=== PATIENT | male | born 1990 | race Caucasian/White ===

== ENCOUNTER 2019-05-07 13:41 | Outpatient (RCR) | payer SELFPAY | END 2019-05-15 00:01 | LOC: WOUND 13:41 | PROVIDERS: Visit Provider Nurse Practitioner Family | DX: L02.414 Cutaneous abscess of left upper limb (principal); I96 Gangrene, not elsewhere classified | CPT/HCPCS: 11042 ×2; 87070; 87077; 87176; 87186; 87205 ==

== ENCOUNTER → 2019-11-04 16:18 | Outpatient (BNVA) | payer SELFPAY | PROVIDERS: PCP Nurse Practitioner; Visit Provider Nurse Practitioner Family | DX: R50.9 Fever, unspecified (principal); J06.9 Acute upper respiratory infection, unspecified; B96.89 Other specified bacterial agents as the cause of diseases classified elsewhere; F17.210 Nicotine dependence, cigarettes, uncomplicated | CPT/HCPCS: 87400; 87635 ==

== ENCOUNTER 2020-05-30 03:40 | Inpatient (IN) | payer SELFPAY ==
[2020-05-30 03:44] VITALS: BP 143/89; PULSE 114; RESP 20; TEMP 36.8; O2SAT 96; BMI 36.9
--- NOTE | 2020-05-30 03:53 | ED_ITS ---
HPI - Anxiety General: Chief Complaint: Anxiety Stated Complaint: sore throat Time Seen by Provider: 05/30/20 03:50 Source: patient Mode of arrival: ambulatory Limitations: no limitations History of Present Illness: HPI narrative: 29-year-old male states that roughly 1 to 2 hours ago he started feeling extremely anxious. He states he has anxiety attacks every night feels like his throat is closing. He states he is feeling improved now still having some anxiety. He does admit to recent opiate abuse and drinking alcohol. He denies any worsening or improving factors. He s tates that his anxiety has been increasingly severe and he states he not able to function. He states he would like to go to the psychiatric unit. MD complaint: anxiety Associated symptoms: Deny chest pain, chills, fever(s), headache(s), nausea or vomiting Review of Systems Const: Denies: fever(s), chills, body aches or change in appetite Eyes: Denies: blurry vision or eye discomfort ENMT: Reports: throat pain Card: Denies: chest pain Resp: Denies: dyspnea GI: Denies: abdominal pain, nausea, vomiting or diarrhea : Denies: dysuria Musc: Denies: neck pain or back pain Skin/Breast: Denies: rash Neuro: Denies: headache(s) Psych: Reports: anxiety Danie/Lymph: Denies: easy bruising All/Imm: Denies: urticaria PFSH ED PFSH: Social History (Updated 11/04/19 @ 16:14 by Siobhan Loza LPN) Smoking and tobacco status: current every day smoker Physical Exam Const: COMMON NORMALS: no acute distress, patient oriented x3 and healthy appearing HENMT: COMMON NORMALS: normocephalic and atraumatic HEAD & SCALP: normocephalic and atraumatic Eye: COMMON NORMALS: Equal, round and reactive pupils present and EOMs intact bilaterally PUPIL: Yes Equal, round and reactive pupils present Neck/C-Spine: COMMON NORMALS: full ROM and supple Chest: COMMONS NORMALS: normal inspection of the chest and normal palpation of entire chest wall Resp: COMMON NORMALS: normal respiratory effort, No retractions, No use of accessory muscles and clear to auscultation bilaterally AUSCULTATION: clear to auscultation bilaterally Cardio: COMMON NORMALS: regular rate, regular rhythm and No murmurs present (Cardio) RATE: regular rate RHYTHM: regular rhythm GI: COMMON NORMALS: Normal to inspection, nondistended, normoactive bowel sounds present, Soft to palpation, non-tender and no masses PALPATION: Yes Soft to palpation Extremity: COMMON NORMALS: normal to inspection and full ROM Neuro: COMMON NORMALS: patient oriented x3, moves all extremities and no focal motor deficits Psych: COMMON NORMALS: mental status grossly normal, Normal thought process present and cooperative MOOD & AFFECT: Yes anxious THOUGHT PROCESS: Normal thought process present Skin: COMMON NORMALS: no rashes or lesions noted and no wounds GENERAL SKIN EXAM: no rashes or lesions noted Course Vital Signs: Vital signs: Vital Signs Temperature 98.2 F 05/30/20 03:44 Pulse Rate 118 H 05/30/20 03:58 Respiratory Rate 20 H 05/30/20 03:44 Blood Pressure 130/105 05/30/20 03:58 Pulse Oximetry 95 05/30/20 03:58 MDM - Anxiety MDM Narrative: Medical decision making narrative: Willard presents here with anxiety stress. He states his anxiety is severe and is unable to function due to it. Patient voluntarily being admitted to the psychiatric unit. I spoke to Dr. Boyle who will admit. Patient is medically cleared. Lab Data: Labs: Lab Results 05/30/20 05/30/20 05/30/20 Range/Units 04:30 04:30 04:45 WBC 9.4 (4.0-10.0) 10^3/ uL RBC 5.17 (4.1-5.3) 10^6/u L Hgb 14.1 (11.7-16.6) g/dL Hct 42.8 (42.0-52.0) % MCV 82.8 (80-94) fL MCH 27.3 L (28.0-34.0) pg MCHC 32.9 (30.0-36.0) g/dL RDW 12.3 (12.1-15.1) % Plt Count 290 (130-400) 10^3/c mm MPV 9.1 (7.4-10.4) fL Neut % (Auto) 72.7 % Lymph % (Auto) 13.7 % [place] % (Auto) 9.2 % Eos % (Auto) 3.6 % Baso % (Auto) 0.5 % Neut # (Auto) 6.83 (1.8-7.7) 10^3/u L Lymph # (Auto) 1.3 (0.8-4.8) 10^3/u L [place] # (Auto) 0.9 (0.2-0.9) 10^3/u L Eos # (Auto) 0.3 (0.0-0.8) 10^3/u L Baso # (Auto) 0.1 (0.0-0.1) 10^3/u L Nucleated RBC % (a uto) 0 % Nucleated RBCs # 0.0 /100WBC Sodium 134 L (136-145) mmol/L Potassium 3.8 (3.5-5.1) mmol/L Chloride 99 (98-107) mmol/L Carbon Dioxide 23 (22-29) mmol/L Anion Gap 15.8 (5-19) BUN 22 H (6-20) mg/dL Creatinine 0.7 (0.7-1.2) mg/dL GFR Calculation 133.3 H (90-130) mL/min Glucose 124 H (65-115) mg/dL Calculated Osmolal ity 283 L (285-295) mOsm/k g Calcium 9.0 (8.5-10.5) mg/dL Total Bilirubin 0.6 (0.15-1.2) mg/dL AST 25 (0-40) U/L ALT 28 (0-41) U/L Alkaline Phosphata se 94 (40-130) IU/L Total Protein 7.5 (6.6-8.7) g/dL Albumin 4.2 (3.5-5.2) g/dL Globulin 3.3 (1.3-4.6) g/dL Salicylates < 0.3 L (3-10) mg/dL Urine Opiates Scre en Positive H (Negative) ng/mL Acetaminophen < 5.0 L (10-30) ug/mL Ur Barbiturates Sc reen Negative (Negative) ng/mL Ur Phencyclidine S crn Negative (Negative) ng/mL Ur Amphetamines Sc reen Positive H (Negative) ng/mL U Benzodiazepines Scrn Negative (Negative) ng/mL Urine Cocaine Scre en Negative (Negative) ng/mL U Marijuana (THC) Screen Negative (Negative) ng/mL Ethyl Alcohol < 10 (0-10) mg/dL Discharge Plan Discharge Patient Disposition: Admitted As Inpatient Clinical Impression: Acute anxiety Condition: Stable Discharge Diet: Advance as tolerated Discharge Activity: Resume usual activity Coding Level of Care Code ED Viscosity Tester for Danish Fwhoward Exam Comprehensive
[2020-05-30] MEDS: LORazepam 2 mg Tablet PO (03:57)
[2020-05-30 03:58] VITALS: BP 130/105; PULSE 118; O2SAT 95
[2020-05-30 04:40] LABS: Basophils # 0.1 10^3/uL (0.0-0.1); Basophils % 0.5 %; Eosinophils # 0.3 10^3/uL (0.0-0.8); Eosinophils % 3.6 %; Hematocrit 42.8 % (42.0-52.0); Hemoglobin 14.1 g/dL (11.7-16.6); Lymphocytes # 1.3 10^3/uL (0.8-4.8); Lymphocytes % 13.7 %; Mean Corpuscular HGB Conc 32.9 g/dL (30.0-36.0); Mean Corpuscular Hemoglobin 27.3 pg (28.0-34.0); Mean Corpuscular Volume 82.8 fL (80-94); Mean Platelet Volume 9.1 fL (7.4-10.4); Monocytes # 0.9 10^3/uL (0.2-0.9); Monocytes % 9.2 %; Neutrophils # 6.83 10^3/uL (1.8-7.7); Neutrophils % 72.7 %; Nucleated Red Blood Cells % 0 %; Platelet Count 290 10^3/cmm (130-400); Red Blood Count 5.17 10^6/uL (4.1-5.3); Red Cell Distribution Width 12.3 % (12.1-15.1); White Blood Count 9.4 10^3/uL (4.0-10.0)
[2020-05-30 05:04] LABS: Amphetamines Screen Urine Positive (Negative); Barbiturates Screen Urine Negative (Negative); Benzodiazepines Screen Urine Negative (Negative); Cocaine Screen Urine Negative (Negative); Opiate Screen Urine Positive (Negative); PCP Screen Urine Negative (Negative); THC Screen Urine Negative (Negative)
[2020-05-30 05:05] LABS: Alanine Aminotransferase 28 U/L (0-41); Albumin Level 4.2 g/dL (3.5-5.2); Alkaline Phosphatase 94 IU/L (40-130); Anion Gap 15.8 (5-19); Aspartate Amino Transferase 25 U/L (0-40); Blood Urea Nitrogen 22 mg/dL (6-20); Carbon Dioxide 23 mmol/L (22-29); Chloride 99 mmol/L (98-107); Globulin 3.3 g/dL (1.3-4.6); Glomerular Filtration Rate 133.3 mL/min (90-130); Glucose 124 mg/dL (65-115); Osmolality Calculated 283 mOsm/kg (285-295); Potassium 3.8 mmol/L (3.5-5.1); Sodium 134 mmol/L (136-145); Total Bilirubin 0.6 mg/dL (0.15-1.2); Total Protein 7.5 g/dL (6.6-8.7)
[2020-05-30 05:11] LABS: Acetaminophen < 5.0 ug/mL (10-30); Alcohol Level < 10 mg/dL (0-10); Salicylate < 0.3 mg/dL (3-10)
--- NOTE | 2020-05-30 05:44 | PC.NURSE ---
pt requests going to NPU as he states he needs help with his anxiety.
[2020-05-30 05:45] VITALS: BP 110/57; PULSE 105; O2SAT 95
[2020-05-30 06:16] VITALS: BP 130/84; PULSE 90; RESP 19; TEMP 36.5; O2SAT 94
--- NOTE | 2020-05-30 11:14 | P.HP_ITS ---
Providers/Chief Complaint Admitting Physician: Ashely Mendez DO Primary Care Provider: DARRYL Gordon Chief Complaint: Worsening anxiety attacks, opioid dependence HPI NPU History of Present Illness Willard Joyce is a 29 year old male with unclear past psychiatric history although patient reports longstanding anxiety in the context of ongoing substance use, polysubstance abuse, states that he has been using opiates on a near daily basis, IVDU, also reports near daily methamphetamine use over the past month after being laid off from his job. Patient was evaluated and medically cleared by the emergency department at which time his urine drug screen was positive for opiates and amphetamines. Patient states that he has been previously treated for depression although he reports that he does not feel like he has depression, denies any decreased energy or interest in his usual activities although he does report having some sluggishness. Patient states that he feels like his primary problem is anxiety and states that he has anxiety attacks on a near daily basis. He reports that he had previously been trialed on an SSRI but states that he has concerns because it was causing him to not feel well. He denies any other treatment for his anxiety symptoms. Per above, patient reports IV drug use on a near daily basis with heroin or pain pills. Patient states that he does not prefer to use methamphetamine but has been using on a more frequent basis for the past month. Patient is unable to state when his last substance abuse treatment was but reports that he is interested in treatment. He currently denies any withdrawal symptoms, denies any nausea, denies any vomiting, denies any stomach cramping or any muscle aches or sweating. Patient denies any psychotic symptoms. Patient denies any recent or past manic or hypomanic episodes. Patient denies any past trauma. Psychiatric review of systems is otherwise negative. Reports that he currently lives with his grandmother and that his mother provides him financial support. Review of Systems General: Reports: 10 or more systems reviewed and unremarkable except in HPI and below Meds NPU Home Medications Medication Instructions Recorded Confirmed Last Taken Type No Known Home Medications 05/30/20 05/30/20 Unknown History Allergies Allergy/AdvReac Type Severity Reaction Status Date / Time amoxicillin Allergy ALGY-Rash Verified 05/30/20 03:48 Penicillins Allergy Unknown Verified 05/30/20 03:48 PFSH NPU PFSH: Social History Smoking and tobacco status: current every day smoker Other Psychiatric History: Other Psychiatric History: Reports first contact with mental health was around the age of 7 or 8 and states that he was hospitalized in a child and adolescent facility in [place], [place] for unknown period of time and does not recall any following treatment Reports seeing [facility] once in the past several years Denies any history of suicide attempt or self-harm behavior Mental Status Exam MSE Comments: Appears older than stated age, somewhat odd appearing, unshaven, long unkempt hair, dirty toes and feet and multiple tattoos on exposed skin, calm, cooperative, fair eye contact Psychomotor activity is neither increased nor decreased, no agitation Speech with frequent pauses otherwise normal rate, normal volume, spontaneous, fair articulation, not pressured I feel anxious, congruent affect, full range, not labile Alert and oriented to person, place, time, situation Memory and concentration appear to be fair per interview Intellectual functioning appears to be low to average at best per vocabulary, interview Thought process, linear, no flight of ideas, no looseness of association Thought content, no delusions, no hallucinations, no suicidal or homicidal ideation Insight and judgment appear to be fair at best Vitals/I&O/Wt Last Vital Signs Temp 97.7 F 05/30/20 06:16 Pulse 90 05/30/20 06:16 Resp 19 H 05/30/20 06:16 BP 130/84 05/30/20 06:16 Pulse Ox 94 05/30/20 06:16 Weight last 48 hrs Weight 113.398 kg Physical Exam Narrative: EXAM NARRATIVE: Emergency department physical examination prior to admission was reviewed Data NPU : 05/30/20 04:30 05/30/20 04:30 A&P Assessment and plan (1) Acute anxiety: Patient presenting with daily anxiety attacks in the context of substance use although he reports past elevated levels of anxiety causing significant impairment and worsening substance use. START Effexor XR 37.5 mg daily with plan to titrate up for effect Patient encouraged to dissipate in unit activities to include unit milieu Status: Acute (2) Polysubstance abuse: Patient reporting near daily use of methamphetamine as well as IV drug use with heroin on a near daily basis over the past month since losing his job Currently denying any withdrawal symptoms Patient would likely benefit from outpatient or residential substance treatment post discharge Status: Acute (3) Hyponatremia: Patient with historically just below normal range serum sodium, will continue to monitor and consult hospitalist if any continued worsening. Status: Acute Involuntary Hold Information 96 Hour Hold: 96 Hour Involuntary Admission: No Attestations NPU Medical Necessity Statement*: Patient with increasing IV substance use with worsening anxiety symptoms causing significant impairment in daily functioning Time Spent in Patient Care: Greater than 35 minutes (>than 50% of time spent in counselling and/or direct pt care on unit) . Coding Level of Care Code Acute Fabrication Operator for Danish Shine Diagnoses Acute anxiety F41.9 Polysubstance abuse F19.10 Hyponatremia E87.1
[2020-05-30] MEDS: venlafaxine ER (24HR) 37.5 mg Capsule PO (11:45)
[2020-05-30 13:25] VITALS: BP 109/65; PULSE 90; RESP 20; TEMP 36.6; O2SAT 96
[2020-05-30] MEDS: nicotine 2 mg Gum BUCCAL (14:52)
--- NOTE | 2020-05-30 15:16 | PC.RESP ---
Smoking Cessation information sent to patient.
[2020-05-30 20:07] VITALS: BP 113/65; PULSE 77; RESP 16; TEMP 36.8; O2SAT 95
[2020-05-30] MEDS: trazodone 50 mg Tablet PO (20:43)
[2020-05-30] MEDS: hyDROXYzine 25 mg Capsule 50 MG PO (20:43)
[2020-05-31 06:00] VITALS: BP 109/69; PULSE 107; RESP 16; TEMP 36.8; O2SAT 93
[2020-05-31] MEDS: venlafaxine ER (24HR) 37.5 mg Capsule PO (08:10)
--- NOTE | 2020-05-31 09:02 | P.PN_ITS ---
Subjective NPU Subjective: Interval history: Continues to report significant anxiety symptoms, states his anxiety has 5-6/10, denies any interval panic symptoms Reports being a controlled environment helps with his anxiety symptoms but fears continued worsening outside of the hospital Reports intermittent depressive symptoms but some improvement, denies any interval suicidal ideation Reports some visual illusions but denies any auditory hallucinations, denies any delusions Patient continues to struggle with relationship between his substance use and his mood and anxiety symptoms Patient reports being compliant with his medication and denies any medication side effects Reports good appetite Reports that his sleep has been good, feels rested No reported interval behavioral disturbances Mental Status Exam MSE Comments: Appears stated age, unkempt hair, unshaven, appropriately dressed, sitting in the day room watching TV, fair eye contact, pleasant, cooperative Psychomotor activity is neither increased nor decreased, no agitation Speech is normal rate and volume, spontaneous, fair articulation, not pressured I feel anxious, full range, not labile Alert and oriented to person, place, time, situation Memory and concentration appear to be intact per interview Thought process linear, no flight of ideas, no looseness of association Thought content, no delusions, does not appear to be attending to any internal stimuli, no suicidal or homicidal ideation Insight and judgment appear to be fair Vitals/I&O/Wt Last Vital Signs Temp 98.3 F 05/31/20 06:00 Pulse 107 H 05/31/20 06:00 Resp 16 05/31/20 06:00 BP 109/69 05/31/20 06:00 Pulse Ox 93 05/31/20 06:00 Weight last 48 hrs Weight 113.398 kg Data NPU : 05/30/20 04:30 05/30/20 04:30 A&P Assessment and plan (1) Acute anxiety: Status: Acute (2) Polysubstance abuse: Status: Acute (3) Hyponatremia: Status: Acute Additional A&P Information Continues reports significant anxiety symptoms with intermittent depressive symptoms, denies any interval suicidal ideation, tolerating medication well INCREASE to Effexor XR 75 mg daily targeting depressive and anxiety symptoms Continue to encourage patient to dissipate in unit activities to include unit milieu Discussed need for abstaining from the use of substances and his relationship with his anxiety and depressive symptoms Involuntary Hold Information 96 Hour Hold: 96 Hour Involuntary Admission: No Attestations NPU Medical Necessity Statement*: Continues require psychiatric hospitalization for medication stabilization and appropriate interventions as well as coordination for post discharge care Coding Level of Care Code Acute Sandblaster Paint Sprayer for Chg Fwd Diagnoses Acute anxiety F41.9 Polysubstance abuse F19.10 Hyponatremia E87.1
[2020-05-31 13:54] VITALS: BP 120/78; PULSE 87; RESP 16; TEMP 36.8; O2SAT 96
[2020-05-31] MEDS: nicotine 2 mg Gum BUCCAL (15:22)
[2020-05-31 20:05] VITALS: BP 148/88; PULSE 97; RESP 18; TEMP 36.8; O2SAT 91
[2020-05-31] MEDS: trazodone 50 mg Tablet PO (20:15)
[2020-05-31] MEDS: hyDROXYzine 25 mg Capsule 50 MG PO (20:15)
[2020-06-01 06:00] VITALS: BP 137/81; PULSE 102; RESP 16; TEMP 36.9; O2SAT 97
--- NOTE | 2020-06-01 09:06 | PM.NPN ---
Subjective NPU Subjective: Interval history: Patient continues to report some anxiety symptoms with intermittent heightened anxiety states, denies any interval panic attacks Reports intermittent low mood states that are transient, denies any sustained depressive symptoms, denies any interval suicidal ideation Denies any interval psychotic symptoms Reports that his appetite is been good States that he slept well, feels rested Reports being compliant with this medication, denies any medication side effects Discussed long-term treatment for anxiety and mood symptoms with antidepressant, patient states that he feels like using amphetamines and opiates help with his anxiety better. No reported interval behavioral disturbances Mental Status Exam MSE Comments: Appears stated age, unkempt, appropriately dressed, calm, cooperative, interactive, fair eye contact Psychomotor activity is neither increased nor decreased, no agitation Speech is normal rate and volume, fair articulation, not pressured I am okay, somewhat constricted affect, not labile Alert and oriented to person, place, time, situation Memory and concentration appear to be fair per interview Intellectual functioning appears to be low to average at best based on vocabulary, interview Thought process, occasional pauses, linear, no flight of ideas, no looseness of association Thought content, concrete, no stated delusions, no hallucinations, no suicidal or homicidal ideation Insight and judgment appear to be fair Vitals/I&O/Wt Last Vital Signs Temp 98.4 F 06/01/20 06:00 Pulse 102 H 06/01/20 06:00 Resp 16 06/01/20 06:00 BP 137/81 06/01/20 06:00 Pulse Ox 97 06/01/20 06:00 Weight last 48 hrs Weight 113.398 kg Data NPU : 05/30/20 04:30 05/30/20 04:30 Involuntary Hold Information 96 Hour Hold: 96 Hour Involuntary Admission: No Attestations NPU Medical Necessity Statement*: Patient continues to require psychiatric hospitalization for medication stabilization as well as coordination for safe discharge which includes post discharge psychiatric follow-up Coding Level of Care Code Acute Underground Production Foreperson for Danish Shine
[2020-06-01] MEDS: nicotine 21 mg Patch 1 PATCH TRANSDERMA (10:23)
--- NOTE | 2020-06-01 10:42 | PC.NURSE ---
EFFEXOR PER SARAI FROM DR. VELAZCO. ONE TIME ORDER ENTERED FOR EFFEXOR 75MG. REGULAR SCHEDULE TO BEGIN 06/02/20.
[2020-06-01] MEDS: venlafaxine ER (24HR) 75 mg Capsule PO (10:46)
[2020-06-01 13:19] VITALS: BP 115/73; PULSE 88; RESP 18; TEMP 37.1
[2020-06-01] MEDS: hyDROXYzine 25 mg Capsule 50 MG PO ×2 (14:30→19:56)
--- NOTE | 2020-06-01 19:53 | PC.NURSE ---
SITTING ON EDGE OF BED, DENIES WANTING TO HARM SELF OR OTHERS. SAYS TO GO HOME TOMORROW. SMILING TONIGHT AND DOES NOT APPEAR JITTERY/ NERVOUS LAST EVENING.
[2020-06-01 19:57] VITALS: BP 125/84; PULSE 92; RESP 19; TEMP 36.7; O2SAT 95
[2020-06-01] MEDS: OLANZapine 5 mg ODT PO (20:39)
[2020-06-02 06:00] VITALS: BP 138/83; PULSE 87; RESP 18; TEMP 36.7; O2SAT 98
[2020-06-02] MEDS: venlafaxine ER (24HR) 75 mg Capsule PO (08:29)
[2020-06-02] MEDS: nicotine 2 mg Gum BUCCAL (10:00)
--- NOTE | 2020-06-02 11:00 | P.DS_ITS ---
Diagnoses at Discharge Discharge Diagnosis (1) Acute anxiety: Status: Acute (2) Polysubstance abuse: Status: Acute (3) Hyponatremia: Status: Acute Reason for Visit Reason for Visit: Worsening anxiety attacks, opioid dependence Hospital Course Hospital Course 29-year-old male with history of polysubstance abuse, anxiety, depression presented to the emergency department with worsening anxiety in the context of intermittent substance abuse. Patient reports that his worsening anxiety was causing impairment in function. There was also report that the patient may have been having some perceptual disturbances although he denied any psychotic symptoms at the time of initial evaluation. Patient also denied any active depressive symptoms although he did report some decrease in his energy level as well as motivation and interest in usual activities. He denied any suicidal ideation at the time of initial evaluation. Patient was started on Effexor XR which was titrated up to 75 mg daily targeting his depressive and anxiety symptoms with good effect and denied any medication side effects. Patient participated in unit milieu with no reports of any behavioral disturbances. Patient was not suicidal at the time of discharge and did not appear to pose an imminent threat of harm to self or others. Low to moderate risk of harm to self given no current suicidal ideation and no reported active psychiatric symptoms all the patient's risk may continue to be elevated if he continues to use substances and is noncompliant with his medication medication management follow-up leading to unexpected, impulsive behavior. Risk mitigation included psychiatric hospitalization for observation and medication stabilization, recommendation to abstain from the use of substances and alcohol as well as coordination for post discharge psychiatric care. Patient was able to communicate his understanding of the need to abstain from the use of substances and alcohol as well as the need for compliance with his medication, medication management and substance counseling in order to further mitigate his risk of harm to self and others. Involuntary Hold Information 96 Hour Hold: 96 Hour Involuntary Admission: No Mental Status Exam MSE Comments: Appears stated age, unkempt hair, appropriately dressed in hospital attire, calm, cooperative, interactive, good eye contact Psychomotor activity is neither increased nor decreased, no agitation Speech is normal rate and volume, spontaneous, fair articulation, not pressured I feel good, full range, not labile Alert and oriented to person, place, time, situation Memory and concentration appear to be intact per interview Thought process, linear, no flight of ideas, no looseness of associations Thought content, no delusions, no hallucinations, no suicidal homicidal ideation Insight and judgment appear to be fair to intact Discharge Data Vitals: Last Vital Signs Temp 98.1 F 06/02/20 06:00 Pulse 87 06/02/20 06:00 Resp 18 06/02/20 06:00 BP 138/83 06/02/20 06:00 Pulse Ox 98 06/02/20 06:00 Discharge Plan Discharge Patient Disposition: Home Condition: Stable Prescriptions: New venlafaxine 75 mg Capsule,Extended Release 24hr 75 mg PO DAILY Qty: 30 RF: 0 Discharge Orders: Discharge Order (Routine); Ordered 06/02/20 Ordered By: Ashely Mendez Referrals: [facility] [Other] (Held at [facility] at 7:00pm) [facility] [Outside] - 1-3 days (Call to schedule intake assessment, once this has been done you will be contacted about an appointment for medication management.) [facility] [Outside] - 4-7 days (Resource for inpatient and outpatient substance abuse treatment.) Rafi Morales, WEBSITE OPTIMIZATION STRATEGIST-C [Primary Care Provider] - 1-3 days Discharge Diet: Advance as tolerated Discharge Activity: Resume usual activity Patient Instructions: Anxiety (ED) Discharge Attestations NPU Time Spent in Discharge Care*: greater than 30 min Status at Discharge: Cognitive status at discharge: cognitively intact , Behavioral status at discharge: cooperative , Functional status at discharge: independent ambulation Overall status at discharge: patient is back to baseline Coding Level of Care Code Acute Nuclear Worker Technician for Danish Shine Diagnoses Acute anxiety F41.9 Polysubstance abuse F19.10 Hyponatremia E87.1
[2020-06-02 11:35] VITALS: BP 138/83; PULSE 87; RESP 18; TEMP 36.7; O2SAT 98
[2020-06-02 11:42] VITALS: BP 138/83; PULSE 87; RESP 18; TEMP 36.7; O2SAT 98
== END 2020-06-02 11:54 | disposition home or self-care (01) | DRG 880 ==
LOC: ER 04:37 → NP 05:29
PROVIDERS: Admitting Provider Psychiatry & Neurology Psychiatry; Emergency Provider Emergency Medicine; PCP Nurse Practitioner; Visit Provider Psychiatry & Neurology Psychiatry
DX: F41.9 Anxiety disorder, unspecified (principal); E87.1 Hypo-osmolality and hyponatremia; F15.10 Other stimulant abuse, uncomplicated; F11.10 Opioid abuse, uncomplicated
CPT/HCPCS: 12345; 80053; 80306; 80307; 85025; 99281

== ENCOUNTER 2020-07-04 03:41 | Emergency (ER) | payer SELFPAY ==
[2020-07-04 03:43] VITALS: BP 149/87; PULSE 115; RESP 18; TEMP 37; O2SAT 96; BMI 32.5
--- NOTE | 2020-07-04 03:52 | XR_ITS ---
WS: [id number] PORTABLE CHEST HISTORY: cough COMPARISON: None available. Lungs are clear and well expanded. No pleural effusion or pneumothorax. Cardiac size: Normal. Mediastinum/Aorta: Normal mediastinum. No osseous abnormality seen. XR/XR chest 1V portable [id number] IMPRESSION: Unremarkable portable chest.
--- NOTE | 2020-07-04 03:59 | W.ED.GENADLT ---
HPI - General Adult General: Chief complaint: Upper Respiratory Infection Stated complaint: ALL OVER PAIN AND A COUGH Time Seen by Provider: 07/04/20 03:52 History of Present Illness: HPI narrative: The patient is a 29-year-old male known fentanyl abuser who comes to the ER saying he took fentanyl earlier today, he has a cough because he thinks he slept in front of a fan and wants to be checked for pneumonia. He also complains he has chronic phimosis for at least 10 years which he has not followed up with a doctor for. His history is very disorganized and he is obviously intoxicated. He is alert and oriented x4 but just has a bizarre thought process. Severity: mild Associated symptoms: Reports no associated symptoms and cough; Deny chest pain, dyspnea, fevers/chills, headache(s), nausea, rash, palpitations, short of breath or vomiting Review of Systems General: Reports: 10 or more systems reviewed and unremarkable except in HPI and below Const: Denies: fatigue Eyes: Denies: change in vision, blurry vision or eye redness ENMT: Denies: throat pain, swelling of lips/tongue, ear or mastoid pain or nasal congestion Card: Denies: chest pain, palpitations, irregular heart rhythm, edema, dyspnea on exertion or orthopnea Resp: Reports: non-productive cough; Denies: dyspnea or productive cough GI: Denies: nausea or vomiting : Denies: flank pain, urinary frequency or urinary urgency Musc: Denies: neck pain, back pain, extremity pain, joint pain, joint redness, limited range of motion or muscle weakness Skin/Breast: Denies: rash, pruritus, erythema, skin pain or skin tenderness Neuro: Denies: headache(s) Psych: Denies: anxiety or depression Endo: Denies: polyuria All/Imm: Denies: urticaria, throat swelling or tongue swelling PFS ED PFSH: Medical History (Updated 07/04/20 @ 05:51 by Antonio Pulido MD) Hyponatremia Social History Smoking and tobacco status: current every day smoker Physical Exam Const: COMMON NORMALS: no acute distress, average body habitus, patient oriented x3, no limitations, healthy appearing, alert and well nourished GENERAL APPEARANCE: cooperative, comfortable, well kempt and well developed ORIENTATION/CONSCIOUSNESS: Yes awake, Yes oriented to person, Yes oriented to place and Yes oriented to time HENMT: COMMON NORMALS: normocephalic, external ears normal and Normal external nose present HEAD & SCALP: normal to inspection and normocephalic NOSE: Normal external nose present EXTERNAL EAR: Yes external ears normal MOUTH: Normal oral and palatal mucosa present THROAT: posterior oropharynx normal Eye: COMMON NORMALS: Equal, round and reactive pupils present and EOMs intact bilaterally GENERAL EYE: appearance normal, both eyes and all related structures PUPIL: Yes Equal, round and reactive pupils present Neck/C-Spine: COMMON NORMALS: full ROM, no lymphadenopathy, no meningeal signs and no JVD GENERAL: Yes normal visual inspection Lymph: LYMPHATIC: no lymphadenopathy noted Chest: COMMONS NORMALS: normal inspection of the chest and normal palpation of entire chest wall Resp: COMMON NORMALS: normal respiratory effort, No retractions, No use of accessory muscles, clear to auscultation bilaterally and percussion normal EFFORT & INSPECTION: Yes able to speak in complete sentences AUSCULTATION: clear to auscultation bilaterally PERCUSSION: percussion normal Cardio: COMMON NORMALS: no JVD, regular rate, regular rhythm, S1 normal heart sound present, S2 normal heart sound present and Peripheral pulses 2+ throughout RATE: regular rate RHYTHM: regular rhythm HEART SOUNDS: S1 normal heart sound present and S2 normal heart sound present PERIPHERAL PULSES: Peripheral pulses 2+ throughout GI: COMMON NORMALS: Normal to inspection, nondistended, normoactive bowel sounds present, Soft to palpation, non-tender and no masses INSPECTION: Yes normal to inspection PALPATION: Yes Soft to palpation : COMMON NORMALS: Yes no CVA tenderness BLADDER/KIDNEY EXAM: Yes no CVA tenderness Back/Pelvis: COMMON NORMALS: no CVA tenderness, thoracic and lumbar spine normal to inspection, no thoracic nor lumbar tenderness and thoraco-lumbar ROM normal Extremity: COMMON NORMALS: normal to inspection, full ROM, capillary refill normal, no joint enlargement and no pedal edema GENERAL: Yes normal exam except as noted Neuro: COMMON NORMALS: patient oriented x3, CN's II-XII intact bilaterally, moves all extremities, no focal motor deficits, no sensory deficits noted and gait normal SENSORIUM/ORIENTATION: Yes alert, Yes oriented to person, Yes oriented to place and Yes oriented to time MENINGEAL SIGNS: Yes no meningeal signs Psych: COMMON NORMALS: mental status grossly normal, Normal thought process present, cooperative, normal affect and speech normal APPEARANCE: Yes well kempt ATTITUDE: Yes calm SPEECH: Yes normal speech THOUGHT PROCESS: Normal thought process present Skin: COMMON NORMALS: no rashes or lesions noted GENERAL SKIN EXAM: no rashes or lesions noted Course Vital Signs: Vital signs: Vital Signs Temperature 98.6 F 07/04/20 03:43 Pulse Rate 110 H 07/04/20 05:07 Respiratory Rate 18 07/04/20 05:07 Blood Pressure 113/73 07/04/20 05:07 Pulse Oximetry 96 07/04/20 05:07 MDM - General Adult MDM Narrative: Medical decision making narrative: Patient comes in complaining of a cough and urinary symptoms. He has a mild UTI. We will arrange a case management referral to help him get a urology appointment and primary care appointment. ER with worsening symptoms discussed drug cessation with him in detail, he is resistant to change Lab Data: Labs: Lab Results 07/04/20 07/04/20 07/04/20 Range/Units 04:05 04:05 04:32 WBC 10.0 (4.0-10.0) 10^3/ uL RBC 5.37 H (4.1-5.3) 10^6/u L Hgb 14.5 (11.7-16.6) g/dL Hct 45.3 (42.0-52.0) % MCV 84.4 (80-94) fL MCH 27.0 L (28.0-34.0) pg MCHC 32.0 (30.0-36.0) g/dL RDW 12.8 (12.1-15.1) % Plt Count 350 (130-400) 10^3/c mm MPV 9.1 (7.4-10.4) fL Neut % (Auto) 71.0 % Lymph % (Auto) 19.6 % [place] % (Auto) 4.7 % Eos % (Auto) 3.9 % Baso % (Auto) 0.5 % Neut # (Auto) 7.10 (1.8-7.7) 10^3/u L Lymph # (Auto) 2.0 (0.8-4.8) 10^3/u L [place] # (Auto) 0.5 (0.2-0.9) 10^3/u L Eos # (Auto) 0.4 (0.0-0.8) 10^3/u L Baso # (Auto) 0.1 (0.0-0.1) 10^3/u L Nucleated RBC % (a uto) 0 % Nucleated RBCs # 0.0 /100WBC Sodium 144 (136-145) mmol/L Potassium 3.7 (3.5-5.1) mmol/L Chloride 106 (98-107) mmol/L Carbon Dioxide 26 (22-29) mmol/L Anion Gap 15.7 (5-19) BUN 9 (6-20) mg/dL Creatinine 1.0 (0.7-1.2) mg/dL GFR Calculation 88.3 L (90-130) mL/min Glucose 134 H (65-115) mg/dL Calculated Osmolal ity 299 H (285-295) mOsm/k g Calcium 8.5 (8.5-10.5) mg/dL Total Bilirubin 0.2 (0.15-1.2) mg/dL AST 20 (0-40) U/L ALT 61 H (0-41) U/L Alkaline Phosphata se 114 (40-130) IU/L Total Protein 7.3 (6.6-8.7) g/dL Albumin 3.9 (3.5-5.2) g/dL Globulin 3.4 (1.3-4.6) g/dL Urine Color Yellow (Yellow) Urine Appearance Clear (CLEAR) Urine pH 5 (5-7) Ur Specific Gravit y 1.025 (1.005-1.030) Urine Protein 3+ H (Negative) Urine Glucose (UA) Norm (Normal) Urine Ketones Negative (Negative) Urine Blood Neg (Negative) Urine Nitrate Negative (Negative) Urine Bilirubin Neg (Negative) Urine Urobilinogen Norm (Negative) mg/dL Ur Leukocyte Mame ase Negative (Negative) Urine RBC 0-4 H (0-2) /hpf Urine WBC 5-10 H (0-5) /hpf Ur Squamous Epith Cells 0-4 H (0-5) /hpf Amorphous Sediment Not Reportable Urine Bacteria Trace (NONE) /hpf Hyaline Casts 5-10 H /lpf Coarse Granular Ca sts 0-4 H /lpf Urine Mucus 1+ /hpf Urine Opiates Scre en (Negative) ng/mL Ur Barbiturates Sc reen (Negative) ng/mL Ur Phencyclidine S crn (Negative) ng/mL Ur Amphetamines Sc reen (Negative) ng/mL U Benzodiazepines Scrn (Negative) ng/mL Urine Cocaine Scre en (Negative) ng/mL U Marijuana (THC) Screen (Negative) ng/mL Ethyl Alcohol < 10 (0-10) mg/dL 07/04/20 Range/Units 04:32 WBC (4.0-10.0) 10^3/ uL RBC (4.1-5.3) 10^6/u L Hgb (11.7-16.6) g/dL Hct (42.0-52.0) % MCV (80-94) fL MCH (28.0-34.0) pg MCHC (30.0-36.0) g/dL RDW (12.1-15.1) % Plt Count (130-400) 10^3/c mm MPV (7.4-10.4) fL Neut % (Auto) % Lymph % (Auto) % [place] % (Auto) % Eos % (Auto) % Baso % (Auto) % Neut # (Auto) (1.8-7.7) 10^3/u L Lymph # (Auto) (0.8-4.8) 10^3/u L [place] # (Auto) (0.2-0.9) 10^3/u L Eos # (Auto) (0.0-0.8) 10^3/u L Baso # (Auto) (0.0-0.1) 10^3/u L Nucleated RBC % (a uto) % Nucleated RBCs # /100WBC Sodium (136-145) mmol/L Potassium (3.5-5.1) mmol/L Chloride (98-107) mmol/L Carbon Dioxide (22-29) mmol/L Anion Gap (5-19) BUN (6-20) mg/dL Creatinine (0.7-1.2) mg/dL GFR Calculation (90-130) mL/min Glucose (65-115) mg/dL Calculated Osmolal ity (285-295) mOsm/k g Calcium (8.5-10.5) mg/dL Total Bilirubin (0.15-1.2) mg/dL AST (0-40) U/L ALT (0-41) U/L Alkaline Phosphata se (40-130) IU/L Total Protein (6.6-8.7) g/dL Albumin (3.5-5.2) g/dL Globulin (1.3-4.6) g/dL Urine Color (Yellow) Urine Appearance (CLEAR) Urine pH (5-7) Ur Specific Gravit y (1.005-1.030) Urine Protein (Negative) Urine Glucose (UA) (Normal) Urine Ketones (Negative) Urine Blood (Negative) Urine Nitrate (Negative) Urine Bilirubin (Negative) Urine Urobilinogen (Negative) mg/dL Ur Leukocyte Mame ase (Negative) Urine RBC (0-2) /hpf Urine WBC (0-5) /hpf Ur Squamous Epith Cells (0-5) /hpf Amorphous Sediment Urine Bacteria (NONE) /hpf Hyaline Casts /lpf Coarse Granular Ca sts /lpf Urine Mucus /hpf Urine Opiates Scre en Positive H (Negative) ng/mL Ur Barbiturates Sc reen Negative (Negative) ng/mL Ur Phencyclidine S crn Negative (Negative) ng/mL Ur Amphetamines Sc reen Negative (Negative) ng/mL U Benzodiazepines Scrn Positive H (Negative) ng/mL Urine Cocaine Scre en Negative (Negative) ng/mL U Marijuana (THC) Screen Positive H (Negative) ng/mL Ethyl Alcohol (0-10) mg/dL Discharge Plan Discharge Patient Disposition: Home Clinical Impression: Polysubstance abuse, Acute UTI Condition: Stable Prescriptions: New Bactrim DS 800-160 mg tablet 1 tab PO BID 10 Days Qty: 20 RF: 0 No Action venlafaxine 75 mg Capsule,Extended Release 24hr 75 mg PO DAILY Qty: 30 RF: 0 Discharge Orders: Discharge ED (Routine); Ordered 07/04/20 Ordered By: Antonio Pulido Referrals: Rafi Morales FNP-C [Primary Care Provider] - Discharge Diet: Advance as tolerated Discharge Activity: Resume usual activity Patient Instructions: Polysubstance Abuse (ED), Opioid Safety, Urinary Tract Infection - Men Activity Restrictions/Additional Instructions: You have a mild urinary tract infection. Please take the antibiotic for 10 days as directed and follow-up with your primary care physician in a few days to monitor improvement of your symptoms. I have placed a case management referral to help you get set up with a primary care doctor and a urologist to discuss your phimosis further. They should be calling later today to help set up these appointments Coding Level of Care Code ED Strategic Marketing Leader for Chg Fwd Exam Comprehensive
[2020-07-04] MEDS: sodium chloride 0.9% 1,000 ML 999 ML IV (04:17)
[2020-07-04 04:22] LABS: Basophils # 0.1 10^3/uL (0.0-0.1); Basophils % 0.5 %; Eosinophils # 0.4 10^3/uL (0.0-0.8); Eosinophils % 3.9 %; Hematocrit 45.3 % (42.0-52.0); Hemoglobin 14.5 g/dL (11.7-16.6); Lymphocytes % 19.6 %; Mean Corpuscular Volume 84.4 fL (80-94); Mean Platelet Volume 9.1 fL (7.4-10.4); Monocytes # 0.5 10^3/uL (0.2-0.9); Monocytes % 4.7 %; Nucleated Red Blood Cells % 0 %; Platelet Count 350 10^3/cmm (130-400); Red Blood Count 5.37 10^6/uL (4.1-5.3); Red Cell Distribution Width 12.8 % (12.1-15.1)
[2020-07-04 04:44] LABS: Alanine Aminotransferase 61 U/L (0-41); Albumin Level 3.9 g/dL (3.5-5.2); Alcohol Level < 10 mg/dL (0-10); Alkaline Phosphatase 114 IU/L (40-130); Aspartate Amino Transferase 20 U/L (0-40); Blood Urea Nitrogen 9 mg/dL (6-20); Calcium 8.5 mg/dL (8.5-10.5); Carbon Dioxide 26 mmol/L (22-29); Chloride 106 mmol/L (98-107); Globulin 3.4 g/dL (1.3-4.6); Glomerular Filtration Rate 88.3 mL/min (90-130); Glucose 134 mg/dL (65-115); Osmolality Calculated 299 mOsm/kg (285-295); Sodium 144 mmol/L (136-145); Total Bilirubin 0.2 mg/dL (0.15-1.2); Total Protein 7.3 g/dL (6.6-8.7)
[2020-07-04 04:46] LABS: Anion Gap 15.7 (5-19); Potassium 3.7 mmol/L (3.5-5.1)
[2020-07-04 04:49] LABS: Amphetamines Screen Urine Negative (Negative); Barbiturates Screen Urine Negative (Negative); Benzodiazepines Screen Urine Positive (Negative); Cocaine Screen Urine Negative (Negative); Opiate Screen Urine Positive (Negative); PCP Screen Urine Negative (Negative); THC Screen Urine Positive (Negative)
[2020-07-04 05:07] VITALS: BP 113/73; PULSE 110; RESP 18; O2SAT 96
[2020-07-04 05:28] LABS: Specific Gravity, Urine 1.025 (1.005-1.030); Urine Appearance Clear (CLEAR); Urine Color Yellow (Yellow); pH Urine 5 (5-7)
[2020-07-04 05:29] LABS: Add Urine Microscopic? YES; Bilirubin Urine Neg (Negative); Blood Urine Neg (Negative); Glucose Urine UA Norm (Normal); Ketones Urine Negative (Negative); Leukocyte Esterase Urine Negative (Negative); Nitrate Urine Negative (Negative); Protein Urine 3+ (Negative); Urobilinogen Urine Norm (Negative)
[2020-07-04 05:30] LABS: RBC Urine 0-4 /hpf (0-2); Squamous Epithelial Cell Urine 0-4 /hpf (0-5)
[2020-07-04 05:31] LABS: Bacteria Urine TRACE /hpf; Coarse Granular Casts Urine 0-4 /lpf; Mucus Urine 1+ /hpf
[2020-07-04 05:32] LABS: Add Urine Culture? No
[2020-07-04] MEDS: sulfamethoxazole-trimeth DS 160-800 mg Tablet 1 TAB PO (06:02)
[2020-07-04 06:03] VITALS: BP 140/88; PULSE 105; RESP 18; O2SAT 95
--- NOTE | 2020-07-04 11:51 | DCPLANNER ---
Addendum entered by Yohana Keita 07/04/20 14:35: heavy equipment sales manager also had message to speak with patient about getting established with a primary care physician. heavy equipment sales manager called phone number [phone], was unable to speak with patient and unable to leave a voicemail at this time. Original Note: heavy equipment sales manager had message to schedule a follow up appointment for patient with Dr. Scott. heavy equipment sales manager called the office of Dr. Scott, spoke with Savita, gave clinic patients information. heavy equipment sales manager was told that patients information would be printed and reviewed. Clinic will barrie patient with appointment information.
--- NOTE | 2020-07-08 08:04 | DCPLANNER ---
Patient has a follow up appointment scheduled for July at 3:[address] Scott. Clinic will call patient with appointment information.
--- NOTE | 2020-08-06 15:34 | DCPLANNER ---
Patient had a follow up appointment scheduled for 07.17.[address] Scott - patient did attend appointment.
== END 2020-07-04 06:04 | disposition home or self-care (01) ==
PROVIDERS: Emergency Provider Family Medicine; PCP Nurse Practitioner
DX: F19.10 Other psychoactive substance abuse, uncomplicated (principal); N39.0 Urinary tract infection, site not specified; F17.210 Nicotine dependence, cigarettes, uncomplicated
CPT/HCPCS: 71045; 80053; 80306; 80307; 81001; 85025; 96360; 99283; J7030

== ENCOUNTER → 2020-07-17 15:27 | Outpatient (BNVA) | payer SELFPAY | PROVIDERS: PCP Nurse Practitioner; Visit Provider Nurse Practitioner Family | DX: N47.1 Phimosis (principal); N39.0 Urinary tract infection, site not specified | CPT/HCPCS: 81003 ==

== ENCOUNTER → 2020-07-28 08:07 | Outpatient (BNVA) | payer SELFPAY | PROVIDERS: PCP Nurse Practitioner; Visit Provider Urology | DX: N47.1 Phimosis (principal); L90.0 Lichen sclerosus et atrophicus | CPT/HCPCS: 81003 ==

== ENCOUNTER 2020-08-03 19:00 | Emergency (ER) | payer SELFPAY ==
[2020-08-03 19:06] VITALS: BP 158/100; PULSE 87; RESP 18; TEMP 36.7; O2SAT 98; BMI 33.5
--- NOTE | 2020-08-03 21:53 | W.ED.GENADLT ---
HPI - General Adult General: Chief complaint: General Medical Stated complaint: Pain below Lt eye Time Seen by Provider: 08/03/20 21:37 Source: patient Mode of arrival: ambulatory Limitations: no limitations History of Present Illness: HPI narrative: 29-year-old male states that he noticed a spot underneath his left eye that is swollen and tender to touch. He states he tried popping at home just because it to be worse. He denies any fevers. States pain is a 3 out of 10 currently. He has had no drainage. Associated symptoms: Deny chest pain, dyspnea, headache(s), nausea, rash or vomiting Review of Systems Const: Denies: fever(s), chills, body aches or change in appetite Eyes: Denies: blurry vision or eye discomfort ENMT: Denies: throat pain or dental pain Card: Denies: chest pain Resp: Denies: dyspnea GI: Denies: abdominal pain, nausea, vomiting or diarrhea : Denies: dysuria Musc: Denies: neck pain or back pain Skin/Breast: Denies: rash Neuro: Denies: headache(s) Psych: Denies: depression Danie/Lymph: Denies: easy bruising All/Imm: Denies: urticaria PFSH ED PFSH: Medical History Anxiety Anxiety Hyponatremia Methamphetamine dependence, continuous Opiate dependence, continuous Phimosis Surgical History Hx of appendectomy Family History Other CAD (coronary artery disease) Social History Smoking and tobacco status: current every day smoker Alcohol intake: current Alcohol intake frequency: few times a week Current occupational status: unemployed Physical Exam Const: COMMON NORMALS: no acute distress, patient oriented x3 and healthy appearing HENMT: COMMON NORMALS: normocephalic and atraumatic HEAD & SCALP: normocephalic and atraumatic OTHER: Small knot palpated just to the lateral aspect of his left nose likely small abscess. Eye: COMMON NORMALS: Equal, round and reactive pupils present and EOMs intact bilaterally PUPIL: Yes Equal, round and reactive pupils present Neck/C-Spine: COMMON NORMALS: full ROM and supple Chest: COMMONS NORMALS: normal inspection of the chest and normal palpation of entire chest wall Resp: COMMON NORMALS: normal respiratory effort, No retractions, No use of accessory muscles and clear to auscultation bilaterally AUSCULTATION: clear to auscultation bilaterally Cardio: COMMON NORMALS: regular rate, regular rhythm and No murmurs present (Cardio) RATE: regular rate RHYTHM: regular rhythm GI: COMMON NORMALS: Normal to inspection, nondistended, normoactive bowel sounds present, Soft to palpation, non-tender and no masses PALPATION: Yes Soft to palpation Extremity: COMMON NORMALS: normal to inspection and full ROM Neuro: COMMON NORMALS: patient oriented x3, moves all extremities and no focal motor deficits Psych: COMMON NORMALS: mental status grossly normal, Normal thought process present and cooperative THOUGHT PROCESS: Normal thought process present Skin: COMMON NORMALS: no rashes or lesions noted and no wounds GENERAL SKIN EXAM: no rashes or lesions noted Course Vital Signs: Vital signs: Vital Signs Temperature 98.1 F 08/03/20 19:06 Pulse Rate 87 08/03/20 19:06 Respiratory Rate 18 08/03/20 19:06 Blood Pressure 158/100 08/03/20 19:06 Pulse Oximetry 98 08/03/20 19:06 MDM - General Adult MDM Narrative: Medical decision making narrative: Patient presents with a small abscess with slight cellulitis. The abscess is not large enough to drain. He is to do warm compresses and will place him on Keflex. He is return if worsening. Discharge Plan Discharge Patient Disposition: Home Clinical Impression: Abscess Condition: Stable Prescriptions: New Keflex 500 mg capsule 500 mg PO Q6H 7 Days Qty: 28 RF: 0 Naprosyn 500 mg tablet 500 mg PO BID PRN (Reason: pain) Qty: 20 RF: 0 No Action quetiapine 50 mg tablet 50 mg PO .qhs 30 Days Qty: 30 RF: 3 Discharge Orders: Discharge ED (Routine); Ordered 08/03/20 Ordered By: Praveen Gill Referrals: Rafi Morales, T RAIL TURNER-C [Primary Care Provider] - 1-3 days Discharge Diet: Advance as tolerated Discharge Activity: Resume usual activity Patient Instructions: Abscess (ED) Coding Level of Care Code ED Carton Forming Machine Operator for Danish Shine
[2020-08-03 22:00] VITALS: RESP 16
== END 2020-08-03 22:00 | disposition home or self-care (01) ==
PROVIDERS: Emergency Provider Emergency Medicine; PCP Nurse Practitioner
DX: L02.01 Cutaneous abscess of face (principal); L03.211 Cellulitis of face; F17.210 Nicotine dependence, cigarettes, uncomplicated
CPT/HCPCS: 99281

== ENCOUNTER → 2020-11-06 08:35 | Outpatient (BNVA) | payer SELFPAY | PROVIDERS: Visit Provider Urology | DX: R35.0 Frequency of micturition (principal); L90.0 Lichen sclerosus et atrophicus; N47.1 Phimosis | CPT/HCPCS: 81003 ==

== ENCOUNTER 2022-01-28 09:10 | Emergency (ER) | payer SELFPAY ==
[2022-01-28 09:14] VITALS: BP 136/85; PULSE 110; RESP 20; TEMP 36.7; O2SAT 93; BMI 33.6
--- NOTE | 2022-01-28 09:22 | XRR_ITS ---
PROCEDURE INFORMATION: Exam: XR Left Hand Exam date and time: 01/28/2022 9:29 AM Age: 31 years old Clinical indication: Injury or trauma; Other: Laceration; Left; Index finger TECHNIQUE: Imaging protocol: Radiologic exam of the Left hand. Views: 3 or more views. COMPARISON: No relevant prior studies available. FINDINGS: Bones/joints: Normal. Soft tissues: Normal. XR/XR hand LT min 3V* [id number] IMPRESSION: No acute findings.
--- NOTE | 2022-01-28 09:24 | ED_ITS ---
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 Does have a 1 cm laceration. He is unsure when his last tetanus was he has full range of motion no bleeding at this time. Denies any other injuries. Associated symptoms: Denies chills, fever(s), nausea or vomiting Review of Systems Const: Denies: fever(s), chills, body aches or change in appetite Eyes: Denies: blurry vision or eye discomfort ENMT: Denies: throat pain or dental pain Card: Denies: chest pain Resp: Denies: dyspnea GI: Denies: abdominal pain, nausea, vomiting or diarrhea : Denies: dysuria Musc: Denies: neck pain or back pain Skin/Breast: Denies: rash Neuro: Denies: headache(s) Psych: Denies: depression Danie/Lymph: Denies: easy bruising All/Imm: Denies: urticaria PFSH ED PFSH: Medical History Anxiety Anxiety Hyponatremia Methamphetamine dependence, continuous Opiate dependence, continuous Phimosis Surgical History Hx of appendectomy Family History Other CAD (coronary artery disease) Social History Smoking and tobacco status: current every day smoker Alcohol intake: current Alcohol intake frequency: few times a week Marital status: Single Current occupational status: employed Current occupation: [employer] History of recent travel: No Physical Exam Const: COMMON NORMALS: no acute distress, patient oriented x3 and healthy appearing HENMT: COMMON NORMALS: normocephalic and atraumatic HEAD & SCALP: normocephalic and atraumatic Eye: COMMON NORMALS: Equal, round and reactive pupils present and EOMs intact bilaterally PUPIL: Yes Equal, round and reactive pupils present Neck/C-Spine: COMMON NORMALS: full ROM and supple Chest: COMMONS NORMALS: normal inspection of the chest Resp: COMMON NORMALS: normal respiratory effort Cardio: COMMON NORMALS: regular rate and No murmurs present (Cardio) RATE: regular rate GI: INSPECTION: Yes normal to inspection Extremity: COMMON NORMALS: full ROM NARRATIVE EXTREMITY EXAM: 1.5 cm laceration to distal left index finger no tendon or nerve involvement Neuro: COMMON NORMALS: patient oriented x3, moves all extremities and no focal motor deficits Psych: COMMON NORMALS: mental status grossly normal, Normal thought process present and cooperative THOUGHT PROCESS: Normal thought process present Skin: COMMON NORMALS: no rashes or lesions noted and no wounds GENERAL SKIN EXAM: no rashes or lesions noted Procedures Laceration Laceration 1: Site: hand Side (If applicable): left Size (cm): 2 Description: linear Depth: simple, single layer Local Anesthetic: other anesthetic (ring block to left index finger .25% bupivacaine) Amount of anesthesia used (mL): 8 Skin layer closed with: nylon Size (cm): 5-0 Number of sutures: 3 Course Vital Signs: Vital signs: Vital Signs Temperature 98.0 F 01/28/22 09:14 Pulse Rate 110 H 01/28/22 09:14 Respiratory Rate 20 H 01/28/22 09:14 Blood Pressure 136/85 01/28/22 09:14 Pulse Oximetry 93 01/28/22 09:14 Oxygen Delivery Me thod 01/28/22 09:14 MDM - Wound/Laceration Medical Decision Making Patient presents here with distal fingertip laceration no bony involvement no tendon involvement patient is well-appearing here in suture he is to return in 1 week for suture removal he is stable for discharge at this time. Discharge Plan Discharge Patient Disposition: Home Clinical Impression: Laceration Condition: Stable Prescriptions: No Action hydrocodone-acetaminophen 5-325 mg tablet 1 tab PO Q6H PRN (Reason: painful procedure) 3 Days Qty: 6 0RF triamcinolone acetonide 0.1 % ointment 1 applic topical QDAY Qty: 30 1RF Rx Instructions: Apply as directed to the penis once a day beginning on 10/09/2020. quetiapine 50 mg tablet 50 mg PO .qhs 30 Days Qty: 30 3RF Naprosyn 500 mg tablet 500 mg PO BID PRN (Reason: pain) Qty: 20 0RF Discharge Orders: Discharge ED (Routine); Ordered 01/28/22 Ordered By: Praveen Gill Discharge Diet: Advance as tolerated Discharge Activity: Resume usual activity Patient Instructions: Finger Laceration (ED) Activity Restrictions/Additional Instructions: suture removal in 7 days Stand Alone Forms: Work/School Release Coding Level of Care Code ED Retail Special Event Associate for Danish Fwd Exam Comprehensive
[2022-01-28] MEDS: HYDROcodone-acetaminophen 5-325 mg Tablet 1 TAB PO (09:32)
[2022-01-28] MEDS: tetanus-dipt-pertussis 0.5 mL SDV IM (09:33)
== END 2022-01-28 10:15 | disposition home or self-care (01) ==
PROVIDERS: Emergency Provider Emergency Medicine
DX: S61.211A Laceration without foreign body of left index finger without damage to nail, initial encounter (principal); F17.200 Nicotine dependence, unspecified, uncomplicated; W29.8XXA Contact with other powered hand tools and household machinery, initial encounter
CPT/HCPCS: 12001; 73130; 90471; 90715; 99283; J3490

== ENCOUNTER 2023-10-24 11:15 | Outpatient (CLI) | payer MEDICAID, SELFPAY ==
--- NOTE | 2023-10-24 11:25 | XRR_ITS ---
PROCEDURE INFORMATION: Exam: XR Abdomen Exam date and time: 10/24/2023 11:35 AM Age: 32 years old Clinical indication: Abdominal pain; Localized; Lower; Prior surgery; Surgery date: 6+ months; Surgery type: Appendectomy TECHNIQUE: Imaging protocol: Radiologic exam of the abdomen. Views: 2 Views. Upright and supine views. COMPARISON: CT abdomen pelvis w con* [id number] 06/04/2018 2:36 PM FINDINGS: Gastrointestinal tract: A few air-fluid levels in the right hemiabdomen. No dilated bowel loops. [id number] stool burden. Intraperitoneal space: Normal. No free air. Bones/joints: Unremarkable for age. XR/XR abdomen min 2V [id number] IMPRESSION: A few air-fluid levels in the right hemiabdomen may be seen in the setting ileus or obstruction.
== END 2023-10-24 11:16 | disposition home or self-care (01) ==
LOC: RAD 11:19
PROVIDERS: PCP Family Medicine; Visit Provider Family Medicine
DX: R10.30 Lower abdominal pain, unspecified (principal); Z98.890 Other specified postprocedural states
CPT/HCPCS: 74019